=== PATIENT | male | born 1960 | race Caucasian/White ===

== ENCOUNTER 2024-02-10 05:59 | Day surgery (SDC) | payer OTHER, SELFPAY ==
[2024-02-10] VITALS (18 sets, daily range): BP systolic 94–141; BP diastolic 58–94; BMI 23.7
[2024-02-10 06:51] LABS: Hematocrit 44.5 % (39.0-52.0); Hemoglobin 15.2 g/dL (13.0-18.0); Mean Corp Hgb Conc. 34.2 g/dL (33.0-37.0); Mean Corpuscular Hgb 30.7 pg (27.0-31.0); Mean Corpuscular Volume 89.9 fL (80.0-94.0); Mean Platelet Volume 9.4 fL (7.4-10.4); Platelet Count 191 10^3/uL (130-400); Red Blood Cell Count 4.95 10^6/uL (4.70-6.10); Red Cell Dist. Width 11.9 % (11.5-14.5)
[2024-02-10 07:09] LABS: ALT (SGPT) 29 U/L (0-50); AST (SGOT) 32 U/L (17-59); Albumin 4.2 g/dl (3.5-5.0); Alkaline Phosphatase 79 U/L (38-126); Blood Urea Nitrogen 19 mg/dl (9-20); Calcium 9.1 mg/dl (8.4-10.2); Carbon Dioxide 28 mmol/L (22-30); Chloride 105 mmol/L (98-107); Estimated Creatinine Clearance 83 ml/min; Glucose 100 mg/dl (70-99); Potassium 4.2 mmol/L (3.5-5.1); Sodium 142 mmol/L (135-145); Total Protein 7.1 g/dl (6.3-8.2); eGFR > 60.00
--- NOTE | 2024-02-10 10:36 | ITS.CL.ABL ---
[facility] - Ablation
Ablation
Procedure Report:
ELECTROPHYSIOLOGY ABLATION STUDY
�
DATE:: February 10, 2024�����������������������������REFERRING: Dr. Song Sancehs
�
INDICATION: Paroxysmal supraventricular tachycardia in the form of typical atrial flutter
�
HISTORY: See H and P.� Tachycardia due to cardiomyopathy
�
ANTIARRHYTHMIC DRUG: Diltiazem
�
PRE-PROCEDURE THEODORA: THEODORA was performed given noncompliance with oral anticoagulation recommendations without atrial thrombus and ejection fraction 45% see separate report by Dr. Melgar
�
PRESENTING RHYTHM: Typical atrial flutter cycle length 240 ms
�
'TIME-OUT':��called and confirmed.
�
SEDATION/ANESTHESIA:��provided via the anesthesia department using general anesthesia (LMA).
�
INTRAVENOUS/ARTERIAL ACCESS:
Right femoral venous - 8Fr
Left femoral venous - 8 Fr, 6 Fr
[id number] stitches bilaterally to both femoral venous access sites.
Ultrasound guidance for bilateral femoral vein access was utilized by me to obtain access with demonstration of normal anatomy
CHADS-VASC Score:
3D mapping with FRANKY mapping system was performed
HAS-Bled Score
The patient was noncompliant with his oral anticoagulation instructions and was taking oral anticoagulation once daily instead of twice daily as instructed. As such we performed THEODORA prior to procedure demonstrating ejection fraction of 45% and no
left atrial appendage thrombus.
PROCEDURE:
1.��A decapolar CS catheter was placed within the CS for mapping and pacing.��This was also used as the reference catheter for the 3-D map. Entrainment was performed from the lateral CTI, proximal and distal coronary sinus demonstrating PPI equal
to tachycardia cycle length in the lateral isthmus in the proximal coronary sinus. Manifest fusion and long PPI from the distal coronary sinus determining counterclockwise macro reentry about the tricuspid valve cycle length to 40 ms. Intracardiac
ultrasound was utilized given extremely difficult CTI anatomy towards the IVC with a ridge�prominent eustachian ridge. We utilized a candycane positioning with the steerable sheath and the 4 mm tactic cath against this ridge where the tachycardia
slowed and terminated. A line was fashioned from 6:00 on the tricuspid annulus back towards the IVC with slowing and termination on this prominent IVC eustachian ridge. The tactic cath 4 mm ablation was performed at 30 W, 42 degrees and 15 to
20-second lesions which were guided by intracardiac ultrasound.
�
2. The intracardiac ultrasound catheter was positioned in the RA to identify the FO for targeting of transseptal puncture, assist��in identification of the pulmonary vein ostia, monitoring pre and post ablation pulmonary vein flow velocities,
monitoring for 'bubble' formation during RF application as a sign of thermal injury,��and to monitor for pericardial effusion during mapping and ablation procedure.���Left atrial size, LV ejection fraction, and pulmonary vein flows were monitored
pre and post ablation procedure. The other valves were inspected and found to be free of significant regurgitation or stenosis.
�
3.��EP study after conversion with extrastimuli and rapid pacing did not induce any atrial fibrillation or other tachyarrhythmia.
�
4.��RA pacing was performed via the proximal decapolar poles and LA pacing was performed via the distal decapolar poles.
�
5. Normal sinus node and AV sheila function noted.
�
�
TOTAL FLOURO TIME: 15 minutes 112 mGy
�
TOTAL RF DURATION: 12 minutes
�
REVERSAL OF HEPARIN: 0 mg of protamine, slow IV administration
�
COMPLICATIONS:
None
Intracardiac US shows no pericardial effusion post ablation.
�
SUMMARY:��
Typical counterclockwise right atrial flutter cycling to 30 ms slowed and terminated from CTI ablation with a prominent eustachian ridge where the tachycardia slowed and terminated.
�
RECOMMENDATIONS:
1. Consider same-day discharge
2. Out of bed 4 hours
3.��Resume oral coagulation as directed twice daily
4.��Outpatient follow-up with Dr. Sanches
�
Copy to: Dr. Song Sanches
�
== END 2024-02-10 15:15 | disposition home or self-care (01) ==
LOC: CATH 05:59
PROVIDERS: ATTENDING PHYSICIAN Internal Medicine Cardiovascular Disease
DX: I48.3 Typical atrial flutter (principal); I47.19 Other supraventricular tachycardia; I48.91 Unspecified atrial fibrillation; I42.9 Cardiomyopathy, unspecified; Z85.828 Personal history of other malignant neoplasm of skin; Z79.01 Long term (current) use of anticoagulants
CPT/HCPCS: 93312; 93320; 93325; 93662; C1894; C1730; C1766; C2630; C1892; C1759; 80053; 85027; 86850; 86900; 86901; 93005; 93653